=== PATIENT | male | born 2000 | race Caucasian/White ===

== ENCOUNTER 2023-02-05 06:05 | Day surgery (SDC) | payer BC, OTHER ==
[2023-02-05 07:00] VITALS: RESP 18
[2023-02-05] MEDS ORDERED: Lactated Ringers 1,000 ML IV ONE (07:10)
[2023-02-05] MEDS ORDERED: Lactated Ringers 1,000 ML IV SCH (07:30)
[2023-02-05] MEDS ORDERED: DIPRIVAN 200 MG/20 ML IV ONE ×2 (07:42→07:59)
[2023-02-05] MEDS ORDERED: Versed 2 MG/2 ML Injection ONE (07:42)
[2023-02-05] MEDS ORDERED: SUBLIMAZE 100 MCG/2 ML ONE (07:47)
[2023-02-05 08:45] VITALS: O2SAT 98
[2023-02-05 09:02] VITALS: PULSE 60; TEMP 98
[2023-02-05 09:52] VITALS: BP 113/80
--- NOTE | 2023-02-05 10:32 | OP ---
SURGERY DATE/TIME: 02/05/2023 0743 PREOPERATIVE DIAGNOSIS: Abdominal pain, nausea and vomiting. POSTOPERATIVE DIAGNOSES: Moderate to severe gastritis. PROCEDURE: Esophagogastroduodenoscopy with cold forceps biopsy. SURGEON: Dr. Miles. ANESTHESIA: Medications were given by the anesthesia department. BRIEF HISTORY: The patient is a 22-year-old white male patient who has been having significant problems with nausea and vomiting. He reports he cannot keep anything down. Even small bites and liquids are brought up also. The patient just recently was started on omeprazole, famotidine and Zofran for nausea. On discussion with his mother, she reports he has had a lot of trouble over his life being in counseling when he was younger but he refuses to go back at this point. The patient is also noted to have a vaping habit and this appears significant as well. He denies any use of ibuprofen, Aleve or aspirin. The patient was felt the need to have endoscopic evaluation. He was appraised of the risks of the procedure including the risk of perforation, phlebitis, untoward reaction to medication, bleeding, missed lesions, sore throat and vocal cord injury. The patient verbalized his understanding and desired to have the procedure performed. DESCRIPTION OF PROCEDURE: The patient was given the medications by the anesthesia department. He had continuous pulse oximetry, ECG monitoring and intermittent blood pressure monitoring during the examination. He was placed in the left lateral decubitus position. A bite block was placed. The flexible Olympus gastroscope was used to intubate the oropharynx. The scope was easily introduced in the esophagus which appeared to be normal throughout its length. The stomach was entered where normal gastric rugal folds were seen and distended nicely with insufflation of air. There was noted to be erythema throughout the body, antrum but cleared up somewhat in the antrum. The pylorus was encountered, intubated. The duodenum is inspected and found to be normal. The scope is withdrawn towards the stomach. Again, retroflex view was obtained of the lesser curvature, fundus and cardia regions of the stomach and the aforementioned erythema was noted patchy throughout the stomach. The scope was then redirected towards the gastric antrum and biopsies were obtained to rule out the presence of Helicobacter pylori-type organisms. The scope was then removed from the patient who tolerated the procedure well and was sent back to outpatient recovery in good condition.
== END 2023-02-05 10:20 | disposition home or self-care (01) ==
LOC: SDC 06:05
PROVIDERS: ATTEND Family Medicine
DX: K29.70 Gastritis, unspecified, without bleeding (principal); R10.9 Unspecified abdominal pain; R11.2 Nausea with vomiting, unspecified
CPT/HCPCS: J2250; J2704; J3010